=== PATIENT | female | born 2000 | race Caucasian/White ===

== ENCOUNTER 2021-08-11 20:07 | Emergency (ER) | payer OTHER ==
[2021-08-11] MEDS ORDERED: Sodium Chloride 0.9% 10 ML Syringe FLUSH PRN (20:50)
[2021-08-11] MEDS ORDERED: Sodium Chloride 0.9% 2.5 ML Syringe FLUSH PRN (20:50)
[2021-08-11] MEDS ORDERED: Ketorolac 30 MG/ML SDV IVPUSH ONE (20:51)
[2021-08-11] MEDS ORDERED: Ondansetron 4 MG/2 ML SDV IVPUSH ONE (20:51)
[2021-08-11] MEDS ORDERED: Sodium Chloride 0.9% 1,000 ML IV ONE (20:51)
[2021-08-11 21:48] LABS: CARBON DIOXIDE,CO2 22.7 mmol/L (21.0-32.0); POTASSIUM,K 3.7 mmol/L (3.5-5.1)
== END 2021-08-11 22:10 | disposition home or self-care (01) ==
LOC: MW.ED 20:07
DX: M54.50 Low back pain, unspecified (principal); Z88.1 Allergy status to other antibiotic agents; Z79.899 Other long term (current) drug therapy
CPT/HCPCS: 36415; 74176; 80053; 81003; 81025; 83690; 85025; 96374; 96375; 99284; J1885; J2405; J7030; 99283

== ENCOUNTER 2025-03-31 08:44 | Day surgery (SDC) | payer BC, OTHER ==
[~2025-03-31 08:44] MED LIST: Albuterol 0.083% 2.5 MG/3 ML Neb Soln NEB PRN; Midazolam 1 MG/ML 2 ML SDV ONE; Naloxone 0.4 MG/ML SDV IVPUSH PRN; Ondansetron 4 MG/2 ML SDV IVPUSH PRN; fentaNYL 100 MCG/2 ML SDV ONE; fentaNYL 50 MCG/ML SDV IVPUSH PRN
[2025-03-31] MEDS: Lactated Ringers 1,000 ML IV SCH (09:00)
[2025-03-31] MEDS ORDERED: Midazolam 1 MG/ML 2 ML SDV ONE (09:02)
[2025-03-31] MEDS ORDERED: propofoL 500 MG/50 ML 50 ML ONE (09:28)
[2025-03-31] MEDS ORDERED: Ketorolac 30 MG/ML SDV ONE (09:29)
[2025-03-31] MEDS ORDERED: Scopalamine 1mg/3day Transdermal Patch ONE (09:29)
[2025-03-31] MEDS ORDERED: Morphine 10 MG/ML SDV ONE (10:24)
== END 2025-03-31 11:30 | disposition home or self-care (01) ==
LOC: MW.SDS 08:44
PROVIDERS: ATTEND Obstetrics & Gynecology
DX: O02.1 Missed abortion (principal); Z88.1 Allergy status to other antibiotic agents
CPT/HCPCS: 59820; A9270; C1729; J1885; J2250; J2272; J2704; J2765; J2791; J3010; J7120; J7999; 01965; J2371; J3490